=== PATIENT | female | born 1990 | race Caucasian/White ===

== ENCOUNTER 2017-11-22 21:54 | Emergency (ER) | payer SELFPAY ==
[~2017-11-22] VITALS: Ht 165.1 cm; Wt 63.0 kg
[2017-11-22 22:01] VITALS: Ht 165.1 cm; Wt 63.0 kg
[2017-11-22 22:31] VITALS: BP 130/75
== END 2017-11-22 22:31 | disposition home or self-care (01) ==
LOC: ED 21:54
DX: J01.90 Acute sinusitis, unspecified (principal); J20.9 Acute bronchitis, unspecified